=== PATIENT | female | born 1990 | race African-American/Black ===

== ENCOUNTER → 2022-02-19 | Outpatient (CLI) | payer OTHER, SELFPAY ==
[2022-02-19 17:37] LABS: Absolute Neutrophil Count 8.1 X10^3/uL (2.0-7.7); Basophil# 0.04 X10^3/uL; Basophil% 0.3 % (0-1); Eosinophil# 0.22 X10^3/uL; Eosinophils% 1.9 % (0-5); Hemoglobin 12.9 g/dL (12.0-15.0); Lymphocyte % 23.7 % (19-41); Mean Corp Hgb Conc 31.5 g/dL (32-36); Mean Corpuscular Hgb 27.4 pg (27.0-32.0); Mean Corpuscular Volume 87.2 fL (81-99); Mean Platelet Vol. 10.4 fl (6.2-12.0); Monocyte# 0.59 X10^3/uL; NRBC Flagged by Analyzer 0 % (0-5); Neutrophil % 68.7 % (47-70); Platelet Count 293 K/mm3 (150-450); RBC Distribution Width CV 13.8 % (11.6-14.6); RBC Distribution Width SD 44.1 fl (35.1-43.9); White Blood Count 11.8 K/mm3 (4.4-11.0)
[2022-02-19 17:57] LABS: Vitamin B12 775 pg/mL (211-911)
[2022-02-19 18:18] LABS: ALB/GLOB Ratio 0.9 RATIO (0.9-2.4); AST(SGOT) 12 U/L (15-37); Alanine Aminotransfer ALT/SGPT 24 U/L (13-56); Albumin, Serum 3.7 g/dL (3.2-5.0); Alkaline Phosphatase 78 U/L (45-117); Anion Gap 7 (5-15); BUN 16 mg/dL (7-18); Calcium,Total 9.2 mg/dL (8.5-10.1); Chloride 104 mmol/L (98-107); Cholesterol 180 mg/dL (200); Creatinine, Serum 0.76 mg/dL (0.55-1.02); EST Glomerular Filtration Rate 92 mL/min (>60); Est Glom Filt Rate - Afr Amer 112 mL/min (>60); Ferritin 49 ng/mL (8-252); Globulin 4.3 g/dL (2.2-4.2); Glucose 82 mg/dL (74-106); High Density Lipoprotein 41 mg/dL; Iron 72 ug/dL (50-170); Iron Binding Capacity,Total 350 ug/dL (250-450); Potassium 3.7 mmol/L (3.5-5.1); Sodium Level 136 mmol/L (136-145); T4 Free Direct 0.85 ng/dL (0.76-1.46); Thyroid Stim Hormone (TSH) 1.23 uIU/mL (0.358-3.74); Triglycerides 187 mg/dL; Very Low Density Lipoprotein 37 mg/dL (5-40)
[2022-02-23 15:08] LABS: Thyroid Stim Immunoglob <0.10 IU/L (0.00-0.55)
[2022-02-23 17:23] LABS: Thyroglobulin Antibody < 1.0 IU/mL (0.0-0.9); Thyroid Peroxidase AB < 8 IU/mL (0-34)
== END | disposition home or self-care (01) ==
LOC: MFPLAB 14:54
PROVIDERS: Visit Provider Family Medicine
DX: D64.9 Anemia, unspecified (principal); E66.01 Morbid (severe) obesity due to excess calories; E01.0 Iodine-deficiency related diffuse (endemic) goiter
CPT/HCPCS: 80053; 80061; 82607; 82728; 82746; 83540; 83550; 84439; 84443; 84445; 85025; 86376; 86800

== ENCOUNTER → 2022-02-24 | Outpatient (CLI) | payer OTHER, SELFPAY ==
--- NOTE | 2022-02-24 12:14 | US_ITS ---
STUDY: THYROID ULTRASOUND REASON FOR EXAM: Female, 31 years old. THYROMEGALY TECHNIQUE: Ultrasound evaluation of the thyroid was performed with real-time and static bartlett-scale imaging. COMPARISON: None. FINDINGS: RIGHT LOBE: The right lobe of the thyroid gland measures 4.4 x 1.6 cm. There is a homogeneous echotexture. There are no demonstrated solid, cystic or complex lesions. LEFT LOBE: The left lobe of the thyroid gland measures 4.4 x 1.7 cm. There is a homogeneous echotexture. There are no demonstrated solid, cystic or complex lesions. ISTHMUS: The isthmus measures 3 mm. US/Thyroid IMPRESSION: There are no acute findings on this ultrasound examination of the thyroid. Electronically Signed: Jhon Perry MD at 14:58 EDT ,
== END | disposition home or self-care (01) ==
PROVIDERS: PCP Family Medicine; Referring Provider Family Medicine; Visit Provider Family Medicine
DX: E01.0 Iodine-deficiency related diffuse (endemic) goiter (principal)
CPT/HCPCS: 76536

== ENCOUNTER 2022-09-08 20:41 | Observation (INO) | payer OTHER, SELFPAY ==
[2022-09-08 20:42] VITALS: BP 131/102; PULSE 111; RESP 18; TEMP 36.6; O2SAT 100; BMI 45.8
--- NOTE | 2022-09-08 21:03 | CT_ITS ---
STUDY: CT ABDOMEN AND PELVIS WITH CONTRAST REASON FOR EXAM: Female, 32 years old. RLQ pain RADIATION DOSAGE (If Supplied By Facility): CTDIvol = ( 17.07 ) mGy, DLP = ( 1188.88 ) mGycm TECHNIQUE: Transaxial images were obtained from the dome of the diaphragm to the symphysis pubis without oral contrast. IV 100mL Isovue-370 was administered. Sagittal and coronal images were reconstructed. Individualized dose optimization techniques were used for this CT. COMPARISON: None. FINDINGS: The visualized lung bases are unremarkable. The visualized portions of the heart are within normal limits. Normal liver. Normal gallbladder and extrahepatic biliary system. Normal spleen. Normal pancreas. Normal bilateral adrenal glands. Normal right kidney. Normal left kidney. Normal visualized stomach. Normal small intestine. Normal colon. There is a tubular, thick-walled appendix (>7mm), consistent with acute appendicitis. No loculated fluid collection to suggest abscess. No pneumoperitoneum to suggest perforation. Normal abdominal aorta. Normal inferior vena cava. Normal retroperitoneum. Normal urinary bladder. Enlarged fibroid uterus. Normal abdominal wall. Normal osseous structures. CT/Abdomen/Pelvis W IV Cont ONLY IMPRESSION: Acute appendicitis without abscess or perforation. N.B. : The above Results were Read Back by Derrick Pagan MD to Abad Sandoval MD, and understanding confirmed on 09/08/2022 22:44:18 (ET). Electronically Signed: Derrick Pagan MD at 22:45 EST ,
--- NOTE | 2022-09-08 21:04 | ED.VIS.GI ---
HPI HPI - GI History of Present Illness Chief Complaint: Abd Pain Narrative Narrative: 32-year-old female past medical history of uterine fibroids, no previous intra-abdominal surgeries presents with right lower quadrant pain and pressure that she has had since early this morning. She states that she was unable to get comfortable last evening and felt gas pains in her right flank to lower quadrant. She took 2 Gas-X without relief of her symptoms. In the middle of the night, she began getting up and having nausea, and vomiting. She denies any blood in her vomitus. Throughout the day, she has had increasing right lower quadrant pain. It is more of a pressure sensation. She denies any dysuria or hematuria. No fevers or chills. She also took a home test which was negative. She is having minimal vaginal bleeding from her uterine fibroids which she believes is justen to when she has her menses. She states that she is concerned that it is her appendix. PFSH PFSH Medical History no medical history no medical history Allergy/AdvReac Type Severity Reaction Status Date / Time No Known Allergies Allergy Verified 09/08/22 20:41 Social History Smoking Status: Never smoker ROS ROS ED ROS Narrative Constitutional: No fever, no chills. HEENT: No sore throat. No neck pain. No loss of vision. No rhinorrhea. Cardiovascular: No chest pain. No palpitations. No pedal edema. Respiratory: No cough, no shortness of breath. Abdominal: Right lower quadrant abdominal pain. Positive nausea. Positive vomiting. No diarrhea. Genitourinary: No dysuria. No hematuria. Musculoskeletal: No myalgias. No arthralgias. Neurologic: No headaches. No dizziness. No lightheadedness. Skin: No rash. No change in color. Psychiatric: No depression. No anxiety. EXAM Physical Exam Narrative Exam Narrative: Afebrile. Vital signs noted. HEENT: Normocephalic. Atraumatic. PERRL, EOMI. Neck soft and supple. No point tenderness or step off. Cardiovascular: Regular tachycardia at 111 bpm. No murmurs, rubs, or gallops appreciated. Respiratory: No tachypnea. Lungs clear to auscultation bilaterally. Gastrointestinal: Abdomen soft, with mild tenderness over McBurney's point with normoactive bowel sounds. No rebound or guarding. Questionable Rovsing sign and that she states she feels pressure. Negative heel strike. Negative psoas/obturator sign. Neurological: Awake. Alert. Nonfocal, nonlateralizing. Skin: No rash. Normal color. No pallor. Musculoskeletal: No pedal edema. Full range of motion extremities. Const Vital Signs: 09/08/22 20:42 09/08/22 22:45 Temperature 97.8 F Temperature Source Temporal Pulse Rate 111 H Respiratory Rate 18 Blood Pressure 131/102 H Blood Pressure Mean 111 Pulse Ox 100 99 Oxygen Delivery Method Room Air Room Air MDM MDM MDM Narrative Medical decision making narrative: Appendicitis is high the differential. She was administered morphine and ondansetron along with a bolus of normal saline 1 L intravenously. CBC, CMP, lipase, urinalysis, and urine were ordered along with CT imaging with IV contrast. CBC shows elevated white count of 13,000. CMP grossly unremarkable with a normal lipase. Urinalysis shows no evidence of infection. CT of the abdomen and pelvis was read by the radiologist. I received a phone call that she has acute appendicitis. In review of his dictation, he states that there is a tubular structure greater than 7 mm with surrounding stranding consistent with a acute appendicitis. I discussed patient with Dr. Vance. She was started on Zosyn intravenously and given an additional dose of morphine for analgesia. She will be admitted to the medical surgical floor, and have surgery tomorrow morning. Disposition is admit in stable condition. Lab Data Attestation: I reviewed the patient's lab results. Labs: Laboratory Results - last 24 hr 09/08/22 09/08/22 09/08/22 21:08 21:08 21:25 WBC Cancelled Corrected WBC Cancelled RBC Cancelled Hgb Cancelled Hct Cancelled MCV Cancelled MCH Cancelled MCHC Cancelled RDW Std Deviation Cancelled RDW Coeff of Kathy Cancelled Plt Count Cancelled MPV Cancelled Immature Gran % (Auto) Cancelled Neut % (Auto) Cancelled Lymph % (Auto) Cancelled Titus % (Auto) Cancelled Eos % (Auto) Cancelled Baso % (Auto) Cancelled Absolute Neuts (auto) Cancelled Absolute Lymphs (auto) Cancelled Total Counted Cancelled Neutrophils % (Manual) Cancelled Band Neutrophils % Cancelled Lymphocytes % (Manual) Cancelled Monocytes % (Manual) Cancelled Eosinophils % (Manual) Cancelled Basophils % (Manual) Cancelled Metamyelocytes % Cancelled Myelocytes % Cancelled Promyelocytes % Cancelled Blast Cells % Cancelled Plasma Cell % (Manual) Cancelled Other Cells % Cancelled Nucleated RBC % Cancelled Nucleated RBCs/100 WBC Cancelled Differential Comment Cancelled Diff Path Review Cancelled Hypersegmented Neuts Cancelled Atypical Lymphocytes Cancelled Reactive Lymphocytes Cancelled Smudge Cells Cancelled Toxic Granulation Cancelled Toxic Vacuolation Cancelled Dohle Bodies Cancelled Betsy Rods Cancelled Platelet Estimate Cancelled Plt Morphology Comment Cancelled RBC Morphology Cancelled Polychromasia Cancelled Hypochromasia Cancelled Poikilocytosis Cancelled Basophilic Stippling Cancelled Anisocytosis Cancelled Microcytosis Cancelled Macrocytosis Cancelled Spherocytes Cancelled Sickle Cells Cancelled Target Cells Cancelled Tear Drop Cells Cancelled Ovalocytes Cancelled Stomatocytes Cancelled [place] Bodies Cancelled [place] Cells Cancelled Bite Cells Cancelled Crenated Cell Cancelled Acanthocytes (Spur) Cancelled Rouleaux Cancelled Schistocytes Cancelled Sodium 137 Potassium 4.2 Chloride 106 Carbon Dioxide 25.0 Anion Gap 6 BUN 14 Creatinine 0.94 Estim Creat Clear Calc 60.57 Est GFR (MDRD) Af Amer 87 Est GFR (MDRD) Non-Af 72 BUN/Creatinine Ratio 14.9 Glucose 142 H Calcium 9.1 Total Bilirubin 0.20 AST 20 ALT 26 Alkaline Phosphatase 75 Total Protein 7.9 Albumin 3.7 Globulin 4.2 Albumin/Globulin Ratio 0.9 Lipase 147 Urine Color Straw Urine Clarity Clear Urine pH 5.0 Ur Specific [place] 1.015 Urine Protein Negative Urine Glucose (UA) Normal Urine Ketones Negative Urine Occult Blood 10 H Urine Nitrite Negative Urine Bilirubin Negative Urine Urobilinogen Normal Ur Leukocyte Esterase 25 H Urine RBC 0-5 SEEN Urine WBC 0-5 SEEN Ur Squamous Epith Cells 0-5 SEEN Urine Bacteria RARE Urine Mucus 0 SEEN Urine Test Negative 09/08/22 21:29 WBC 13.5 H Corrected WBC RBC 4.43 Hgb 12.2 Hct 38.9 MCV 87.8 MCH 27.5 MCHC 31.4 L RDW Std Deviation 43.7 RDW Coeff of Kathy 13.6 Plt Count 296 MPV 10.5 Immature Gran % (Auto) 0.400 Neut % (Auto) 69.9 Lymph % (Auto) 23.9 Titus % (Auto) 4.8 Eos % (Auto) 0.9 Baso % (Auto) 0.1 Absolute Neuts (auto) 9.4 H Absolute Lymphs (auto) 3.22 Total Counted Neutrophils % (Manual) Band Neutrophils % Lymphocytes % (Manual) Monocytes % (Manual) Eosinophils % (Manual) Basophils % (Manual) Metamyelocytes % Myelocytes % Promyelocytes % Blast Cells % Plasma Cell % (Manual) Other Cells % Nucleated RBC % 0 Nucleated RBCs/100 WBC Differential Comment Diff Path Review Hypersegmented Neuts Atypical Lymphocytes Reactive Lymphocytes Smudge Cells Toxic Granulation Toxic Vacuolation Dohle Bodies Betsy Rods Platelet Estimate Plt Morphology Comment RBC Morphology Polychromasia Hypochromasia Poikilocytosis Basophilic Stippling Anisocytosis Microcytosis Macrocytosis Spherocytes Sickle Cells Target Cells Tear Drop Cells Ovalocytes Stomatocytes [place] Bodies Debbie Cells Bite Cells Crenated Cell Acanthocytes (Spur) Rouleaux Schistocytes Sodium Potassium Chloride Carbon Dioxide Anion Gap BUN Creatinine Estim Creat Clear Calc Est GFR (MDRD) Af Amer Est GFR (MDRD) Non-Af BUN/Creatinine Ratio Glucose Calcium Total Bilirubin AST ALT Alkaline Phosphatase Total Protein Albumin Globulin Albumin/Globulin Ratio Lipase Urine Color Urine Clarity Urine pH Ur Specific [place] Urine Protein Urine Glucose (UA) Urine Ketones Urine Occult Blood Urine Nitrite Urine Bilirubin Urine Urobilinogen Ur Leukocyte Esterase Urine RBC Urine WBC Ur Squamous Epith Cells Urine Bacteria Urine Mucus Urine Test Radiography Diagnostic Testing: Clinical Impression(s) from Imaging Studies Abdomen/Pelvis CT 09/08/22 21:03 IMPRESSION: Acute appendicitis without abscess or perforation. N.B. : The above Results were Read Back by Derrick Pagan MD to Abad Sandoval MD, and understanding confirmed on 09/08/2022 22:44:18 (ET). Electronically Signed: Derrick Pagan MD at 22:45 EST , ADDENDUM: 09/08/22 5642 IMPRESSION: Acute appendicitis without abscess or perforation. N.B. : The above Results were Read Back by Derrick Pagan MD to Abad Sandoval MD, and understanding confirmed on 09/08/2022 22:44:18 (ET). Electronically Signed: Derrick Pagan MD at 22:45 EST , Discharge Plan Dx/Rx/DC Orders Clinical Impression: Appendicitis, History of uterine fibroid, Leukocytosis Disposition Disposition: Acute Care Hospital [facility]
[2022-09-08] MEDS: Morphine 4 MG/ML Syringe IV ×2 (21:20→22:53)
[2022-09-08] MEDS: 0.9% Normal Saline 1,000 ML 1000 ML IV (21:20)
[2022-09-08] MEDS: Ondansetron 4 MG/2 ML Vial IV (21:20)
[2022-09-08 21:38] LABS: ALB/GLOB Ratio 0.9 RATIO (0.9-2.4); AST(SGOT) 20 U/L (15-37); Alanine Aminotransfer ALT/SGPT 26 U/L (13-56); Albumin, Serum 3.7 g/dL (3.2-5.0); Alkaline Phosphatase 75 U/L (45-117); Anion Gap 6 (5-15); BUN 14 mg/dL (7-18); BUN/Creat Ratio 14.9 RATIO (10-20); Calcium,Total 9.1 mg/dL (8.5-10.1); Chloride 106 mmol/L (98-107); Creatinine, Serum 0.94 mg/dL (0.55-1.02); EST Glomerular Filtration Rate 72 mL/min (>60); Est Glom Filt Rate - Afr Amer 87 mL/min (>60); Estimated Creatinine Clearance 60.57 ml/min; Globulin 4.2 g/dL (2.2-4.2); Glucose 142 mg/dL (74-106); Lipase 147 U/L (73-393); Potassium 4.2 mmol/L (3.5-5.1); Protein, Total 7.9 g/dL (6.4-8.2); Sodium Level 137 mmol/L (136-145)
[2022-09-08 21:43] LABS: Mucous, Urine 0 SEEN /hpf (<or=2+)
[2022-09-08 21:46] LABS: Color, Urine Straw (Yellow); Glucose, Dipstick Normal (Normal); Ketone-Dipstick Negative (Negative); Leukocyte Esterase-Dipstick 25 /ul (Negative); Nitrite-Dipstick Negative (Negative); Occult Blood-Urine 10 /ul (Negative); Protein-Dipstick Negative (Negative); Specific Gravity, Urine 1.015 (1.002-1.030); Urine Bilirubin Dipstick Negative (Negative); Urine Clarity Clear (Clear); Urine Urobilinogen Normal (Normal)
[2022-09-08 21:46] LABS: Absolute Lymphocyte Count 3.22 X10^3/uL (0.83-4.51); Absolute Neutrophil Count 9.4 X10^3/uL (2.0-7.7); Basophil# 0.02 X10^3/uL; Basophil% 0.1 % (0-1); Eosinophil# 0.12 X10^3/uL; Eosinophils% 0.9 % (0-5); Hematocrit 38.9 % (37-47); Hemoglobin 12.2 g/dL (12.0-15.0); Lymphocyte # 3.22 X10^3/ul (0.83-4.51); Lymphocyte % 23.9 % (19-41); Mean Corp Hgb Conc 31.4 g/dL (32-36); Mean Corpuscular Hgb 27.5 pg (27.0-32.0); Mean Corpuscular Volume 87.8 fL (81-99); Mean Platelet Vol. 10.5 fl (6.2-12.0); Monocyte# 0.65 X10^3/uL; Monocyte% 4.8 % (0-10); NRBC Flagged by Analyzer 0 % (0-5); Neutrophil # 9.42 X10^3/uL (2.7-7.7); Neutrophil % 69.9 % (47-70); Platelet Count 296 K/mm3 (150-450); RBC Distribution Width CV 13.6 % (11.6-14.6); RBC Distribution Width SD 43.7 fl (35.1-43.9); Red Blood Count 4.43 M/mm3 (4.2-5.4); White Blood Count 13.5 K/mm3 (4.4-11.0)
[2022-09-08 21:50] LABS: Internal QC Validated? YES +Cl - CLEAR BKGD; Pregnancy, Urine Negative Negative
[2022-09-08 22:08] LABS: Red Blood Cells-Urine 0-5 SEEN /hpf (0-5); Squamous Epithelial Cells - UA 0-5 SEEN /hpf (5-10); White Blood Cells 0-5 SEEN /hpf (0-5)
[2022-09-08 22:09] LABS: Bacteria RARE /hpf (None Seen)
[2022-09-08 22:45] VITALS: O2SAT 99
[2022-09-08 23:23] VITALS: BP 130/74; PULSE 75; RESP 15; TEMP 37.1; O2SAT 99
[2022-09-08] MEDS: 0.9% Normal Saline 1,000 ML 100 ML IV (23:29)
[2022-09-09] VITALS (11 sets, daily range): BP systolic 97–120; BP diastolic 58–80; PULSE 69–90; RESP 12–18; TEMP 36.3–36.8; O2SAT 91–100; BMI 46.4
[2022-09-09] MEDS: Morphine 4 MG/ML Syringe IV (00:35)
[2022-09-09] MEDS: 0.9% Saline Lock 10 ML Syringe IV (00:35)
--- NOTE | 2022-09-09 05:19 | HP.PCM.SX_ITS ---
HPI - General General Date of Admission: 09/08/22 HPI Narrative JAKI DUQUE, is a 32 F who presents with abdominal pain. Patient reports the abdominal pain started the evening before. She says she did have nausea vomiting. She describes the pain as right lower quadrant. She denies fevers or chills. [facility] Medical History (Updated 09/09/22 @ 05:[address] Jens Vance MD) Anxiety Depression Ex-smoker Uterine fibroid Medical History no medical history Home Medications NK 09/09/22 [History Last Taken Unknown] Allergy/AdvReac Type Severity Reaction Status Date / Time No Known Allergies Allergy Verified 09/08/22 20:41 Social History Smoking Status: Former smoker ROS Constitutional Constitutional: Denies anorexia or fatigue Eyes Eyes: Denies change in vision ENT HEENT: Denies abnormal hearing Cardiovascular Cardiovascular: Denies chest pain Respiratory/Chest Respiratory/Chest: Denies dyspnea Gastrointestinal Gastrointestinal: Reports abdominal pain, nausea and vomiting Genitourinary Genitourinary: Denies change in urinary stream Musculoskeletal Musculoskeletal: Denies back pain Integumentary Integumentary: Denies jaundice Neurologic Neurologic: Denies dizziness Psychiatric Psychiatric: Denies anxiety Vital Signs Vital Signs Vital Signs: 09/08/22 20:42 09/08/22 22:45 09/08/22 23:23 Temperature 97.8 F 98.8 F Temperature Source Temporal Temporal Pulse Rate 111 H 75 Respiratory Rate 18 15 Respiratory Effort Blood Pressure 131/102 H 130/74 H Blood Pressure Mean 111 92 Blood Pressure Source Blood Pressure Position Blood Pressure Location Pulse Ox 100 99 99 Oxygen Delivery Method Room Air Room Air Room Air 09/09/22 00:05 09/09/22 00:03 09/09/22 04:33 Temperature 98.2 F 97.7 F L Temperature Source Oral Oral Pulse Rate 83 74 Respiratory Rate 18 16 Respiratory Effort Normal Non-Labored Blood Pressure 119/80 97/58 L Blood Pressure Mean 93 71 Blood Pressure Source Monitor Monitor Blood Pressure Position Sitting Semi-Fowlers Blood Pressure Location Left Arm Left Arm Pulse Ox 95 95 Oxygen Delivery Method Room Air Room Air Room Air 09/09/22 04:41 09/09/22 04:41 Temperature 97.7 F L 97.7 F L Temperature Source Oral Oral Pulse Rate 69 69 Respiratory Rate 16 16 Respiratory Effort Blood Pressure 97/58 L 97/58 L Blood Pressure Mean 71 71 Blood Pressure Source Monitor Blood Pressure Position Semi-Fowlers Blood Pressure Location Left Arm Pulse Ox 94 94 Oxygen Delivery Method Room Air Room Air Weight Weight: 237 lb 14.06 oz Body Mass Index (BMI) 46.4 Physical Exam Const oriented x3 and no apparent distress Resp normal respiratory effort Cardio regular rate and regular rhythm GI soft to palpation Palpation: tender RLQ and Rovsing's sign Extremity normal to inspection Results Lab / Micro Data Result Diagrams: 09/08/22 21:29 09/08/22 21:08 Labs: Laboratory Results - last 24 hr 09/08/22 21:08: WBC Cancelled, Corrected WBC Cancelled, RBC Cancelled, Hgb Cancelled, Hct Cancelled, MCV Cancelled, MCH Cancelled, MCHC Cancelled, RDW Std Deviation Cancelled, RDW Coeff of Kathy Cancelled, Plt Count Cancelled, MPV Cancelled, Immature Gran % (Auto) Cancelled, Neut % (Auto) Cancelled, Lymph % (Auto) Cancelled, [place] % (Auto) Cancelled, Eos % (Auto) Cancelled, Baso % (Auto) Cancelled, Absolute Neuts (auto) Cancelled, Absolute Lymphs (auto) Cancelled, Total Counted Cancelled, Neutrophils % (Manual) Cancelled, Band Neutrophils % Cancelled, Lymphocytes % (Manual) Cancelled, Monocytes % (Manual) Cancelled, Eosinophils % (Manual) Cancelled, Basophils % (Manual) Cancelled, Metamyelocytes % Cancelled, Myelocytes % Cancelled, Promyelocytes % Cancelled, Blast Cells % Cancelled, Plasma Cell % (Manual) Cancelled, Other Cells % Cancelled, Nucleated RBC % Cancelled, Nucleated RBCs/100 WBC Cancelled, Differential Comment Cancelled, Diff Path Review Cancelled, Hypersegmented Neuts Cancelled, Atypical Lymphocytes Cancelled, Reactive Lymphocytes Cancelled, Smudge Cells Cancelled, Toxic Granulation Cancelled, Toxic Vacuolation Cancelled, Dohle Bodies Cancelled, Betsy Rods Cancelled, Platelet Estimate Cancelled, Plt Morphology Comment Cancelled, RBC Morphology Cancelled, Polychromasia Cancelled, Hypochromasia Cancelled, Poikilocytosis Cancelled, Basophilic Stippling Cancelled, Anisocytosis Cancelled, Microcytosis Cancelled, Macrocytosis Cancelled, Spherocytes Cancelled, Sickle Cells Cancelled, Target Cells Cancelled, Tear Drop Cells Cancelled, Ovalocytes Cancelled, Stomatocytes Cancel led, [place] Bodies Cancelled, Debbie Cells Cancelled, Bite Cells Cancelled, Crenated Cell Cancelled, Acanthocytes (Spur) Cancelled, Rouleaux Cancelled, Schistocytes Cancelled 09/08/22 21:08: Sodium 137, Potassium 4.2, Chloride 106, Carbon Dioxide 25.0, Anion Gap 6, BUN 14, Creatinine 0.94, Estim Creat Clear Calc 60.57, Est GFR (MDRD) Af Amer 87, Est GFR (MDRD) Non-Af 72, BUN/Creatinine Ratio 14.9, Glucose 142 H, Calcium 9.1, Total Bilirubin 0.20, AST 20, ALT 26, Alkaline Phosphatase 75, Total Protein 7.9, Albumin 3.7, Globulin 4.2, Albumin/Globulin Ratio 0.9, Lipase 147 09/08/22 21:25: Urine Color Straw, Urine Clarity Clear, Urine pH 5.0, Ur Specific [place] 1.015, Urine Protein Negative, Urine Glucose (UA) Normal, Urine Ketones Negative, Urine Occult Blood 10 H, Urine Nitrite Negative, Urine Bilirubin Negative, Urine Urobilinogen Normal, Ur Leukocyte Esterase 25 H, Urine RBC 0-5 SEEN, Urine WBC 0-5 SEEN, Ur Squamous Epith Cells 0-5 SEEN, Urine Bacteria RARE, Urine Mucus 0 SEEN, Urine Test Negative 09/08/22 21:29: WBC 13.5 H, RBC 4.43, Hgb 12.2, Hct 38.9, MCV 87.8, MCH 27.5, MCHC 31.4 L, RDW Std Deviation 43.7, RDW Coeff of Kathy 13.6, Plt Count 296, MPV 10.5, Immature Gran % (Auto) 0.400, Neut % (Auto) 69.9, Lymph % (Auto) 23.9, [place] % (Auto) 4.8, Eos % (Auto) 0.9, Baso % (Auto) 0.1, Absolute Neuts (auto) 9.4 H, Absolute Lymphs (auto) 3.22, Nucleated RBC % 0 Radiology Impression Abdomen/Pelvis CT 09/08/22 21:03 IMPRESSION: Acute appendicitis without abscess or perforation. N.B. : The above Results were Read Back by Derrick Pagan MD to Abad Sandoval MD, and understanding confirmed on 09/08/2022 22:44:18 (ET). Electronically Signed: Derrick Pagan MD at 22:45 EST , ADDENDUM: 09/08/22 2252 IMPRESSION: Acute appendicitis without abscess or perforation. N.B. : The above Results were Read Back by Derrick Pagan MD to Abad Sandoval MD, and understanding confirmed on 09/08/2022 22:44:18 (ET). Electronically Signed: Derrick Pagan MD at 22:45 EST , Assessment & Plan Assessment/Plan (1) Appendicitis: QUALIFIERS: Appendicitis type: unspecified Qualified Code(s): K37 - Unspecified appendicitis PLAN: Patient comes in with right lower quadrant pain and CT scan confirmed acute appendicitis. I discussed laparoscopic appendectomy with the patient in detail. I discussed the procedure as well as the risks of bleeding, infection, injury to other organs such as the bowel, bladder, ureter. Patient understands the risks and is willing to proceed with laparoscopic appendectomy. She was admitted overnight and given IV antibiotics and she is doing well this morning. Jens Vance MD Pager: [facility] [address] [place] [address], [address] [place] [address] Office:
--- NOTE | 2022-09-09 05:30 | APP_PTH ---
PATIENT: JAKI DUQUE LOC: MS3 U#:[id number] AGE/SX: 32/F ROOM: VT310 RE09/08/[address]: Dr. Jens Vance MD : 1990 BED: 1 DIS: 09/09/2022 SPEC #: [id number] RECD: 09/09/22 10:15 STATUS: CHAPIS JENKINS #: [id number] RANDY: 09/09/22 05:[address]: Jens Vance DEPT: SURGICAL PATHOLOGY RECD BY: Brandee Bolden ENTERED: 09/09/22 12:46 SP TYPE: APPENDIX OTHR DR: Dr. Nicola Francois MD Tissues: Appendix, NOS Procedures: Surgery Specimen Level III HEADER OPERATION: Laparoscopic appendectomy PRE-OP DIAGNOSIS: Acute appendicitis TISSUE SUBMITTED: Appendix MICROSCOPIC DIAGNOSIS Appendix, appendectomy: Acute appendicitis and periappendicitis. EROS:josé 09/10/2022 MICROSCOPIC DESCRIPTION Slides are reviewed. GROSS DESCRIPTION Received in fixative is one container labeled with the patient's name and designated appendix. The specimen consists of a C-shaped appendix measuring 7 cm in length and up to 1 cm in diameter. The attached periappendiceal adipose tissue measures up to 1 cm in width. No obvious perforation is identified. The serosal surface is covered focally with bartlett, purulent exudate. The lumen does not contain any fecalith. Diabetologist sections are submitted in one cassette. / SJ:josé 09/09/2022 :2 CPT: 21027
[2022-09-09] MEDS: Bupivacaine 0.25% 30 ML Vial (06:07)
--- NOTE | 2022-09-09 07:03 | NURSING ---
Emergency documention today.
--- NOTE | 2022-09-09 07:40 | OP.PCM_ITS ---
Problems Associated Problem List Diagnoses (1) Appendicitis: Report of Operation Date of Procedure: 09/09/22 Pre-Operative Diagnosis: Acute appendicitis Post-Operative Diagnosis: Acute appendicitis Surgery/Procedure Performed:: Laparoscopic appendectomy Specimen's removed: Appendix Description of Procedure: The patient was brought into the operating room and general anesthesia was induced. The left arm was tucked and the abdomen was prepped and draped in usual sterile fashion. A small midline incision was made superior to the umbilicus and deepened to the level of the fascia. The fascia was elevated and incised. The peritoneum was also elevated and incised. A finger sweep was performed and a balloon trocar was placed into the abdomen and inflated. The abdomen was insufflated to 15 mmHg and the camera was inserted and the abdomen was inspected for any injuries upon entering the abdomen. There were none. The patient was placed in Trendelenburg position and a 5 mm ports placed in the left lower quadrant and suprapubic areas under direct visualization. Next using atraumatic bowel graspers the appendix was identified. The appendix was grasped and elevated and Enseal was used to take down the mesoappendix. A stapler was used to come across the base of the appendix. The appendix was then placed in Endo Catch bag and removed through the umbilical incision. The staple line was inspected and found to be hemostatic and intact. The 2 5 mm ports are removed under direct visualization. The balloon trocar was deflated and removed and all the air was removed from the abdomen. The umbilical incision fascia was closed with an 0 Vicryl [id number] suture. The incisions were then irrigated with saline and dried. Local anesthetic was injected into the incision sites. The skin incisions were then closed with interrupted 4-0 Monocryl suture and Steri- Strips. Bandages were applied and the patient was awoken and taken to PACU in stable condition. Patient tolerated the procedure well. Admit VTE Documentation VTE Mechan Device Prophylaxis: SCD's
--- NOTE | 2022-09-09 07:40 | DCINST_ITS ---
Discharge Instructions Procedure Appendectomy Diet Discharge Diet: Light diet - advance as tolerated Activity Discharge Activity: May Not Drive (for 2-3 days or while taking narcotic pain medications.) May shower in (days): 1 Lifting Restrictions: 20 lbs for 2 weeks Dressing / Incision Call your doctor if your incision/area has: Continuous Slow Oozing, Sudden Increased Bleeding, Increased Pain/ Swelling, Increased Redness and Foul Smelling Discharge Call your doctor if you observe: Fever of 101 or Higher Suture Line Care: Avoid Pulling/Pushing and Avoid Pinching/Bending Remove Dressing in: 2 days Cleanse incision/area with: Soap & Water Additional Dressing/Incision Instructions:: Keep dressing clean and dry. Change or remove dressing in 2 days. Leave steri strips for 1 week. May protect with a gauze bandaid. Follow Up Care Please Follow Up With: Jens Vance MD When: Please call to schedule 2 week follow up appointment. [phone] Test Results: Test results from this visit will be discussed in further detail at your follow- up appointment, if applicable. Discharge Plan Admission Admit Date/Time: 09/08/22 23:00 Attending Provider: Jens Vance Primary Care Provider: Nicola Francois Discharge Orders/Prescriptions Prescriptions: New acetaminophen [Tylenol] 325 mg Tablet 650 mg PO Q4H PRN PRN (Reason: PAIN 1-10/FEVER) Qty: 0 0RF oxycodone 5 mg Tablet 5 - 10 mg PO Q4H PRN PRN (Reason: Pain Score 4-10/10) 5 Days Qty: 20 0RF Referrals / Follow Up: Nicola Francois MD [Primary Care Provider] - Disposition Disposition (needs filled in before D/C Order can be placed): Home, Self Care
[2022-09-09] MEDS: 0.9% Normal Saline 1,000 ML 50 ML IV (10:07)
== END 2022-09-09 11:46 | disposition home or self-care (01) ==
LOC: ED 22:55 → MS3 09-09 00:15
PROVIDERS: Admitting Provider Surgery; Emergency Provider Emergency Medicine; PCP Family Medicine; Visit Provider Surgery
PROC: 0DTJ4ZZ Resection of Appendix, Percutaneous Endoscopic Approach (ICD-10-PCS; CPT 44970; principal; 2022-09-09 05:10)
DX: K35.80 Unspecified acute appendicitis (principal); D25.9 Leiomyoma of uterus, unspecified; Z87.891 Personal history of nicotine dependence
CPT/HCPCS: 44970; 00840; 74177; 80053; 81001; 81025; 83690; 85025; 88304; 96361; 96365; 96375; 96376; 99218; 99284; J7030; Q9967; A4216; C1760; G0378; J2405

== ENCOUNTER 2023-09-14 02:50 | Emergency (ER) | payer OTHER, SELFPAY ==
[2023-09-14 02:51] VITALS: BP 130/85; PULSE 128; RESP 16; TEMP 37.9; O2SAT 95; BMI 48.2
--- NOTE | 2023-09-14 02:55 | EDS_ITS ---
HPI HPI - GI History of Present Illness Chief Complaint: Abd Pain Informant: patient Abdominal Pain/Flank Pain Onset: Weeks (2) Context: Gradual Onset Timing: Continuous Quality: Sharp and Stabbing Location: RLQ Worsened by: Movement Relieved by: Nothing Nausea/Vomiting/Emesis GI Symptom: Negative for Nausea or Vomiting Diarrhea/Melena/Hematochezia GI Symptom: Negative for Diarrhea, Melena or Hematochezia Associated Symptoms Associated Symptoms: Positive for Frequency; Negative for Dysuria or Hematuria Narrative Narrative: Patient presents with abdominal pain that has been intermittent over the last 2 weeks. Patient states that became worse tonight. Patient describes it as sharp and stabbing. Patient states it is worse of the right lower abdomen sometimes it radiates across to the left lower abdomen. Patient states it is worse with certain movements. Patient denies any nausea or vomiting. Patient denies any diarrhea, melena, or hematochezia. Patient admits to some urinary frequency but denies any dysuria or hematuria. Patient states her last menstrual period was approximately 2 months ago but states they are normally irregular. PFSH PFSH Medical History Anxiety Depression Ex-smoker Uterine fibroid Home Medications naproxen 500 mg tablet 500 mg PO BID PRN #20 tabs 09/14/23 [Rx Last Taken Unknown] Allergy/AdvReac Type Severity Reaction Status Date / Time No Known Allergies Allergy Verified 09/14/23 02:53 Surgical History S/P appendectomy Social History Smoking Status: Former smoker ROS ROS ED Constitutional Constitutional ED: Reports chills and fever(s) Eyes Eyes: Denies blurry vision or change in vision ENT ENT ED: Denies rhinorrhea or sore throat Cardiovascular Cardiovascular: Denies chest pain or palpitations Respiratory/Chest Respiratory/Chest: Denies cough or dyspnea Gastrointestinal Gastrointestinal: Reports abdominal pain; Denies nausea or vomiting Genitourinary Genitourinary ED: Reports urinary frequency; Denies dysuria or hematuria Musculoskeletal Musculoskeletal: Reports back pain; Denies neck pain Integumentary Denies abscess or rash Neurologic Neurologic: Reports headache(s); Denies weakness Allergic/Immunologic Allergic/Immunologic ED: Denies mouth swelling or urticaria EXAM Physical Exam Const Vital Signs: 09/14/23 02:51 09/14/23 04:51 Temperature 100.3 F H Temperature Source Temporal Pulse Rate 128 H 81 Respiratory Rate 16 16 Blood Pressure 130/85 H Blood Pressure Mean 100 Pulse Ox 95 100 Positive well nourished, well developed and obese General Appearance ED: well developed and NAD Nutritional Appearance: obese HEENT Reports moist mucous membranes Neck supple and no JVD Resp normal respiratory effort and clear to auscultation bilaterally Cardio regular rhythm Rate: tachycardic GI Palpation: soft and tender LLQ, RLQ and suprapubic; Negative for guarding or rebound tenderness present Extremity full ROM Neuro CN's II-XII intact bilaterally, moves all extremities and no sensory deficits noted Sensorium / Orientation: alert Motor Exam: strength 5/5 throughout Psych mental status grossly normal and thought process normal MDM MDM MDM Narrative Medical decision making narrative: Differential diagnosis includes bowel obstruction, perforation, urinary tract infection, ureteral calculus, ectopic , ovarian cyst, ovarian torsion, pelvic mass, and mesenteric adenitis. CBC will be obtained to assess for leukocytosis and anemia. Basic metabolic profile will be obtained to assess for electrolyte abnormality and renal function. Urinalysis will be obtained to assess for urinary tract infection and hematuria. Serum hCG will be obtained to assess for . CT scan of the abdomen pelvis will be obtained to assess for ureteral calculus, ovarian cyst, bowel obstruction, and perforation. Lab Data Attestation: I reviewed the patient's lab results. Lab results narrative: CBC was reviewed and was within normal limits. Basic metabolic profile was reviewed. Glucose was slightly elevated at 140. The remainder is within normal limits. Serum hCG was reviewed and was negative. Urinalysis was reviewed. There is no evidence of urinary tract infection or hematuria. Labs: Laboratory Results - last 24 hr 09/14/23 09/14/23 03:26 03:51 WBC 8.5 RBC 4.80 Hgb 12.7 Hct 41.3 MCV 86.0 MCH 26.5 L MCHC 30.8 L RDW Std Deviation 42.9 RDW Coeff of Kathy 13.8 Plt Count 238 MPV 9.7 Immature Gran % (Auto) 0.200 Neut % (Auto) 80.1 H Lymph % (Auto) 9.8 L [place] % (Auto) 8.6 Eos % (Auto) 0.8 Baso % (Auto) 0.5 Absolute Neuts (auto) 6.8 Absolute Lymphs (auto) 0.83 Nucleated RBC % 0 Sodium 138 Potassium 3.9 Chloride 106 Carbon Dioxide 27.0 Anion Gap 5 BUN 9 Creatinine 0.92 Estim Creat Clear Calc 61.31 Est GFR (MDRD) Af Amer 89 Est GFR (MDRD) Non-Af 74 BUN/Creatinine Ratio 9.8 L Glucose 140 H Calcium 9.0 Serum , Qual NEGATIVE Urine Color Yellow Urine Clarity Clear Urine pH 7.0 Ur Specific [place] 1.005 Urine Protein Negative Urine Glucose (UA) Normal Urine Ketones Negative Urine Occult Blood Negative Urine Nitrite Negative Urine Bilirubin Negative Urine Urobilinogen Normal Ur Leukocyte Esterase Negative Urine RBC 0 SEEN Urine WBC 0 SEEN Ur Squamous Epith Cells 0 SEEN Urine Bacteria 0 SEEN Urine Mucus 0 SEEN Radiography Diagnostic Testing: Clinical Impression(s) from Imaging Studies Abdomen/Pelvis CT 09/14/23 03:13 IMPRESSION: 1. Fatty liver. 2. Small hiatal hernia. 3. Previous appendectomy. 4. 3 cm simple-appearing right ovarian cyst, not severely different from the 2021 study. No further evaluation is necessary. 5. Leiomyomatous uterus. 6. No visible evidence for acute pathology. Electronically Signed: Christopher Gomez MD at 6:32 EST Reading Location ID and State: [facility] / [place] , Service support , CT scan of the abdomen pelvis was obtained. There is a 3 cm simple right ovarian cyst. There are uterine fibroids noted. There is no acute abnormality noted. This was interpreted by the radiologist and was also independently reviewed by myself. Treatment and Re-Evaluation :: Patient was given IV fluids, morphine, and Zofran. Patient was advised of her findings. Patient was given a prescription for Naprosyn. Patient was instructed to follow-up with her primary care physician in 5 to 7 days. Patient was instructed return if worse in any way. Patient understood and was agreeable with the plan. All questions were answered. Discharge Plan Triage Chief Complaint: Abd Pain ED Provider: Luan Sommers Dx/Rx/DC Orders Clinical Impression: Cyst of right ovary, Abdominal pain, Morbid obesity with BMI of 45.0-49.9, adult Instructions: ED Ovarian Cyst Prescriptions: New naproxen 500 mg tablet 500 mg PO BID PRN Qty: 20 0RF Primary Care Provider: Nicola Francois Referrals: Nicola Francois MD [Primary Care Provider] - 5-7 Days Disposition Disposition: Home, Self Care
--- NOTE | 2023-09-14 03:13 | CT_ITS ---
EXAM: CT ABDOMEN AND PELVIS WITH INTRAVENOUS CONTRAST CLINICAL INDICATION: Abdominal pain -- IV PO Contrast . Right-sided abdominal pain for a few weeks, but now worse. Negative test. History of uterine fibroid and appendectomy. TECHNIQUE: Helically acquired images were obtained of the abdomen and pelvis with intravenous contrast. This CT exam was performed using one or more of the following dose reduction techniques: automated exposure control, adjustment of the mA and/or kV according to patient size, and/or use of iterative reconstruction technique. CONTRAST: Oral and amp; IV Gastrografin and amp; 100mL Isovue-370 RADIATION DOSE: CTDIvol = 17.07 mGy, DLP = 1188.29 mGy-cm COMPARISON: CT scan abdomen and pelvis 09/08/2022. FINDINGS: LOWER THORAX: There is mild atelectasis in the visualized lung bases. There is a small hiatal hernia. No cardiomegaly. No significant pericardial effusion. ABDOMEN: LIVER: There is decreased attenuation in the liver suggesting fatty infiltration. GALLBLADDER AND BILE DUCTS: Unremarkable. No calcified gallstones. No gallbladder distention or wall edema. No intra- or extrahepatic biliary ductal dilation. PANCREAS: Unremarkable. No focal cystic or solid mass. SPLEEN: Unremarkable. Normal size without focal cystic or solid mass. ADRENALS: Unremarkable. No nodules. KIDNEYS AND URETERS: Unremarkable. Normal renal size and position. No hydronephrosis. STOMACH AND BOWEL: Unremarkable. No stomach or bowel distention. No focal inflammatory change. PELVIS: APPENDIX: The appendix is surgically absent. BLADDER: Unremarkable. REPRODUCTIVE: Approximately 9.5 cm low attenuation space occupying lesion in the posterior body and fundus of uterus, which is likely to represent a leiomyoma. There is a 3 cm right ovarian cyst which is simple in appearance. There is no significant change from previous study. ABDOMEN and PELVIS: INTRAPERITONEAL SPACE: Unremarkable. No ascites or other fluid collection. No free air. BONES/JOINTS: Unremarkable. No suspicious lytic or blastic abnormality. SOFT TISSUES: Unremarkable. No discrete abdominal or pelvic wall hernia. VASCULATURE: Unremarkable. Abdominal aorta is non-dilated. LYMPH NODES: Unremarkable. No enlarged lymph nodes. CT/Abdomen/Pelvis WITH Contrast IMPRESSION: 1. Fatty liver. 2. Small hiatal hernia. 3. Previous appendectomy. 4. 3 cm simple-appearing right ovarian cyst, not severely different from the 2021 study. No further evaluation is necessary. 5. Leiomyomatous uterus. 6. No visible evidence for acute pathology. Electronically Signed: Christopher Gomez MD at 6:32 EST Reading Location ID and State: [facility] / [place] , Service support ,
[2023-09-14 03:31] LABS: Absolute Lymphocyte Count 0.83 X10^3/uL (0.83-4.51); Absolute Neutrophil Count 6.8 X10^3/uL (2.0-7.7); Basophil# 0.04 X10^3/uL; Basophil% 0.5 % (0-1); Eosinophil# 0.07 X10^3/uL; Eosinophils% 0.8 % (0-5); Hematocrit 41.3 % (37-47); Hemoglobin 12.7 g/dL (12.0-15.0); Lymphocyte # 0.83 X10^3/ul (0.83-4.51); Lymphocyte % 9.8 % (19-41); Mean Corp Hgb Conc 30.8 g/dL (32-36); Mean Corpuscular Hgb 26.5 pg (27.0-32.0); Mean Platelet Vol. 9.7 fl (6.2-12.0); Monocyte# 0.73 X10^3/uL; Monocyte% 8.6 % (0-10); NRBC Flagged by Analyzer 0 % (0-5); Neutrophil # 6.76 X10^3/uL (2.7-7.7); Neutrophil % 80.1 % (47-70); Platelet Count 238 K/mm3 (150-450); RBC Distribution Width CV 13.8 % (11.6-14.6); RBC Distribution Width SD 42.9 fl (35.1-43.9); White Blood Count 8.5 K/mm3 (4.4-11.0)
[2023-09-14] MEDS: Morphine 4 MG/ML Syringe IV (03:39)
[2023-09-14] MEDS: 0.9% Normal Saline (1000mL) 1,000 ML 1000 ML IV (03:39)
[2023-09-14] MEDS: Ondansetron 4 MG/2 ML Vial IV (03:39)
[2023-09-14 03:50] LABS: Anion Gap 5 (5-15); BUN 9 mg/dL (7-18); BUN/Creat Ratio 9.8 RATIO (10-20); Chloride 106 mmol/L (98-107); Creatinine, Serum 0.92 mg/dL (0.55-1.02); EST Glomerular Filtration Rate 74 mL/min (>60); Est Glom Filt Rate - Afr Amer 89 mL/min (>60); Estimated Creatinine Clearance 61.31 ml/min; Glucose 140 mg/dL (74-106); Potassium 3.9 mmol/L (3.5-5.1); Sodium Level 138 mmol/L (136-145)
[2023-09-14 03:53] LABS: Internal QC Validated? YES +Cl - CLEAR BKGD; Pregnancy, Serum, hCG Quali. NEGATIVE Negative
[2023-09-14 03:57] LABS: Bacteria 0 SEEN /hpf (None Seen); Mucous, Urine 0 SEEN /hpf (<or=2+); Red Blood Cells-Urine 0 SEEN /hpf (0-5); Squamous Epithelial Cells - UA 0 SEEN /hpf (5-10); White Blood Cells 0 SEEN /hpf (0-5)
[2023-09-14 03:59] LABS: Color, Urine Yellow (Yellow); Glucose, Dipstick Normal (Normal); Ketone-Dipstick Negative (Negative); Leukocyte Esterase-Dipstick Negative /ul (Negative); Nitrite-Dipstick Negative (Negative); Occult Blood-Urine Negative /ul (Negative); Protein-Dipstick Negative (Negative); Specific Gravity, Urine 1.005 (1.002-1.030); Urine Bilirubin Dipstick Negative (Negative); Urine Clarity Clear (Clear); Urine Urobilinogen Normal (Normal)
[2023-09-14 04:51] VITALS: PULSE 81; RESP 16; O2SAT 100
[2023-09-14 07:05] VITALS: BP 121/75; PULSE 81; RESP 16; O2SAT 100
== END 2023-09-14 07:12 | disposition home or self-care (01) ==
PROVIDERS: Emergency Provider Emergency Medicine; PCP Family Medicine; Visit Provider Emergency Medicine
DX: N83.291 Other ovarian cyst, right side (principal); E66.01 Morbid (severe) obesity due to excess calories; Z68.42 Body mass index [BMI] 45.0-49.9, adult; Z90.49 Acquired absence of other specified parts of digestive tract; Z87.891 Personal history of nicotine dependence
CPT/HCPCS: 74177; 80048; 81001; 84703; 85025; 96361; 96374; 96375; 99282; J7030; Q9967; A4216; J2405

== ENCOUNTER 2024-05-19 17:28 | Emergency (ER) | payer OTHER, SELFPAY ==
[2024-05-19 17:29] VITALS: BP 147/109; PULSE 70; RESP 16; TEMP 36.9; O2SAT 100; BMI 44.7
--- NOTE | 2024-05-19 18:09 | EDS_ITS ---
HPI HPI - Female History of Present Illness Chief Complaint: Female C/O Detail of Chief Complaint: Vaginal bleeding Informant: patient Pain Pain: Positive for Pelvic Pain Timing: Intermittent Quality: Positive for Cramping Current Severity: Mild Maximum Severity: Mild Bleeding Issue: Positive for Vaginal bleeding and Passing clots Onset: Days Context: Gradual Onset Timing: Continuous Current Severity: Heavy Vaginal Discharge Onset: Today Associated Symptoms Associated Symptoms: Negative for Dysuria or Frequency P: 0 Ab: 0 Narrative Narrative: 33-year-old female history of uterine fibroid and ovarian cyst. Started her menstrual period about a week ago. Much heavier bleeding today with passage of clots. Mild cramping. No dysuria or fever. G0, P0. Prior similar symptoms: Yes Recent Illness/Hospitalization: No PFSH PFSH Medical History Uterine fibroid Ex-smoker Depression Anxiety Home Medications ?Medication ?Instructions ?Recorded ?Last Taken ?Type naproxen 500 mg tablet 500 mg PO BID PRN #20 tabs 09/14/23 Unknown Rx Allergy/AdvReac Type Severity Reaction Status Date / Time No Known Allergies Allergy Verified 05/19/24 17:29 Surgical History S/P appendectomy Social History Smoking Status: Former smoker ROS ROS ED ROS Narrative Denies recent illness. Constitutional Constitutional ED: Denies chills Eyes Eyes: Denies blurry vision ENT ENT ED: Denies ear pain Cardiovascular Cardiovascular: Denies chest pain Respiratory/Chest Respiratory/Chest: Denies cough or dyspnea Gastrointestinal Gastrointestinal: Denies abdominal pain, constipation, diarrhea, melena, nausea or vomiting Genitourinary Genitourinary ED: Denies dysuria or hematuria Musculoskeletal Musculoskeletal: Denies arthralgias Integumentary Denies abscess Neurologic Neurologic: Denies headache(s) Psychiatric Psychiatric: Denies anxiety Endocrine Endocrinology: Denies heat intolerance Hematologic/Lymphatic Hematologic/Lymphatic: Denies easy bleeding, easy bruising or lymphadenopathy Allergic/Immunologic Allergic/Immunologic ED: Denies mouth swelling, tongue swelling or urticaria EXAM Physical Exam Narrative Exam Narrative: Well-appearing 33-year-old female. Vital signs are stable afebrile. H EENT exam unremarkable. Lungs clear. Heart regular rate and rhythm rate about 70 no murmur. Abdomen soft, nontender, nondistended normal bowel sounds without peritoneal signs. No reproducible pain. Moving all 4 extremities. Awake and alert. No focal motor deficits. Benign exam. Significant other at bedside. Const Vital Signs: 05/19/24 17:29 05/19/24 19:29 Temperature 98.4 F 98.7 F Temperature Source Temporal Pulse Rate 70 74 Respiratory Rate 16 16 Blood Pressure 147/109 H 110/65 Blood Pressure Mean 121 80 Pulse Ox 100 100 Oxygen Delivery Method Room Air Positive well nourished and well developed; Negative for cachectic, contractures or unkempt General Appearance ED: well developed and NAD; Negative for unkempt, cachectic, contractures or pallor Nutritional Appearance: Negative for cachectic HEENT Reports moist mucous membranes Negative for trauma or tenderness Eyes PERRL and EOMs intact bilaterally General Eye ED: Negative for pale conjunctiva, scleral icterus or other Neck no lymphadenopathy, supple and no JVD General: Negative for other Thyroid: Negative for tender Lymph Lymphatic: Negative for other Chest Wall inspection of chest normal and palpation of chest normal Chest: Negative for other Resp normal respiratory effort and clear to auscultation bilaterally Effort and Inspection: Negative for pain with movement Auscultation: Negative for rales, rhonchi, wheezes or diminished lung sounds Cardio regular rate, regular rhythm, S1 normal heart sound, no murmurs and no JVD Rate: Negative for bradycardia or tachycardic Rhythm: Negative for abnormal rhythm GI normal to inspection, nondistended, normoactive bowel sounds, soft to palpation, non-tender, non-distended and no masses Auscultation: normoactive bowel sounds Palpation: Negative for tender, guarding, rigid or mass Back/Spine no CVA tenderness General Back: Negative for CVA tenderness Cervical Spine: Negative for cervical spine tenderness Thoracic Spine / Upper Back: Negative for thoracic spinal tenderness Lumbar Spine / Lower Back: Negative for lumbar spinal tenderness Extremity normal to inspection and full ROM General Extremety ED: Negative for edema or tenderness General Extremity: Negative for edema Neuro oriented x3 and CN's II-XII intact bilaterally Sensorium / Orientation: alert, oriented to person, oriented to place and oriented to time; Negative for confused, lethargic or stuporous Motor Exam: strength 5/5 throughout; Negative for general weakness or strength abnormal Psych mental status grossly normal Appearance: Negative for unkempt Attitude: No agitated Speech: No other Mood & Affect: Negative for depressed, anxious or tearful Skin no rashes or lesions noted and no wounds General Skin Exam: Negative for jaundice or pallor Rashes: No rashes noted Trauma: Negative for other MDM MDM MDM Narrative Medical decision making narrative: 33-year-old female with a history of uterine fibroid with bleeding. Patient is never been . test CBC and chemistry. Repeat exam at 7:35 PM is unchanged. Patient doing well. Exam unchanged. She was offered but deferred a pelvic exam will follow-up with local [employer] for further evaluation of her vaginal bleeding and uterine fibroid. History & Record Review Discussion w/independent historian: Patient and Significant other Lab Data Attestation: I reviewed the patient's lab results. Lab results narrative: CBC shows white count of 10. H&H 11.1 and 35.3. Platelets 284. Hemoglobin is down a little it typically runs between 12.2 and 12.7. Electrolytes show gap 6. Normal BUN and creatinine. Glucose 92. Serum test negative. Labs: Laboratory Results - last 24 hr 05/19/24 17:45 WBC 10.8 RBC 4.02 L Hgb 11.1 L Hct 35.3 L MCV 87.8 MCH 27.6 MCHC 31.4 L RDW Std Deviation 44.1 H RDW Coeff of Kathy 13.7 Plt Count 284 MPV 10.0 Sodium 140 Potassium 3.5 Chloride 109 H Carbon Dioxide 25.0 Anion Gap 6 BUN 18 Creatinine 0.75 Estim Creat Clear Calc 113.82 Est GFR (MDRD) Af Amer 112 Est GFR (MDRD) Non-Af 92 BUN/Creatinine Ratio 23.9 H Glucose 92 Calcium 9.3 Serum , Qual NEGATIVE Discharge Plan Triage Chief Complaint: Female C/O ED Provider: Ronald Vora Dx/Rx/DC Orders Clinical Impression: Abnormal vaginal bleeding, History of uterine fibroid Instructions: ED Dysfunctional Uterine Bleeding Prescriptions: No Action naproxen 500 mg tablet 500 mg PO BID PRN Qty: 20 0RF Primary Care Provider: Nicola Francois Referrals: Nicola Francois MD [Primary Care Provider] - Allyson Espinal MD [Med Staff - Active Staff] - As soon as possible Activity Restrictions/Additional Instructions: Plenty of fluids to replace the blood loss. Tylenol for pain. Call and follow-up with [facility] for further evaluation. If you have recurrent worsening bleeding return. At this time your blood counts are stable and you do not need a transfusion. You are currently not . Print Language: Citizen Of [place] Disposition Disposition: Home, Self Care Discharge Date/Time: 05/19/24 19:48
[2024-05-19 18:15] LABS: Hematocrit 35.3 % (37-47); Hemoglobin 11.1 g/dL (12.0-15.0); Mean Corp Hgb Conc 31.4 g/dL (32-36); Mean Corpuscular Hgb 27.6 pg (27.0-32.0); Mean Corpuscular Volume 87.8 fL (81-99); Platelet Count 284 K/mm3 (150-450); RBC Distribution Width CV 13.7 % (11.6-14.6); RBC Distribution Width SD 44.1 fl (35.1-43.9); Red Blood Count 4.02 M/mm3 (4.2-5.4); White Blood Count 10.8 K/mm3 (4.4-11.0)
[2024-05-19 18:29] LABS: Internal QC Validated? YES +Cl - CLEAR BKGD; Pregnancy, Serum, hCG Quali. NEGATIVE Negative
[2024-05-19 18:30] LABS: Anion Gap 6 (5-15); BUN 18 mg/dL (7-18); BUN/Creat Ratio 23.9 RATIO (10-20); Calcium,Total 9.3 mg/dL (8.5-10.1); Chloride 109 mmol/L (98-107); Creatinine, Serum 0.75 mg/dL (0.55-1.02); EST Glomerular Filtration Rate 92 mL/min (>60); Est Glom Filt Rate - Afr Amer 112 mL/min (>60); Estimated Creatinine Clearance 113.82 ml/min; Glucose 92 mg/dL (74-106); Potassium 3.5 mmol/L (3.5-5.1); Sodium Level 140 mmol/L (136-145)
[2024-05-19 19:29] VITALS: BP 110/65; PULSE 74; RESP 16; TEMP 37.1; O2SAT 100
== END 2024-05-19 19:48 | disposition home or self-care (01) ==
PROVIDERS: Emergency Provider Emergency Medicine; PCP Family Medicine; Visit Provider Emergency Medicine
DX: N93.9 Abnormal uterine and vaginal bleeding, unspecified (principal); Z87.42 Personal history of other diseases of the female genital tract; Z87.891 Personal history of nicotine dependence
CPT/HCPCS: 80048; 84703; 85027; 99283; A4216